=== PATIENT | female | born 1950 | race Caucasian/White ===

== ENCOUNTER 2022-06-21 11:00 | Outpatient (RCR) | payer MEDICARE, SELFPAY ==
--- NOTE | 2022-04-17 11:48 | PTOPEVAL1 ---
Assessment and note entered by Farooq Cardenas, PT, DPT Evaluation Information Assessment Status Evaluation Diagnosis L TKA Onset 03/28/22 Subjective Information Pt states he has complete 5 visits of home health therapy, it has been a week since her last visit. She states she has discomfort but is able to do almost all of her daily tasks. She states she has been taking pain medication only at night to get comfortable to sleep. She ambulates into the clinic today without a device. Reported Pain Level Pain Score 4: Self Report Assessment PT Clinical Summary Shiela presents to therapy today for her initial therapy evaluation following a L TKA on 03/28/22. Today she demonstrate L knee active motion of -10 deg to 90 deg. She currently ambulates without a device and has decreased knee flexion during swing phase of gait and decreased knee extension during the stance phase. She demonstrates decreased functional mobility at this time. Skilled physical therapy services are indicated to progress through surgical protocol, to progress towards therapy goals, to improve strength and ROM, and to promote a return to baseline of unlimited functional mobility. Plan of Care Interventions Electrical Stimulation,Gait Training,Hot Pack/Cold Pack,Manual Therapy,Neuro Re-education,Patient/ Caregiver Educati,Therapeutic Activities, Therapeutic Exercise PT Services Indicated Yes Treatment Frequency and 2x/wk for 5 wks Duration These treatments will address the objective and functional deficits as defined above. The patient will be advanced safely and appropriately in order for the patient to progress towards his/her prior level of function. Additional exercises will be introduced and as well as a comprehensive home exercise program upon discharge, if needed, ?to ensure carryover of functional gains achieved in the clinic. This treatment plan has been reviewed and agreement upon by the patient.
--- NOTE | 2022-05-24 10:59 | PTOPPROG ---
Assessment and note entered by Farooq Cardenas, PT, DPT Evaluation Information Assessment Status Progress Diagnosis L TKA Onset 03/28/22 Subjective Information Pt states she thinks she is doing extremely well. She states she has been really diligent doing her exercises at home but still struggles with the stairs. Pt reports 50% reports improvement in overall symptoms. Assessment PT Clinical Summary Shiela presents to therapy today for her progress report following 9 visits of skilled therapy to treat her L TKA performed on 03/28/22. Today she demonstrates improved active and passive ROM, actively she can get from -5 - 112 deg, and passively from -2-115 deg. She demonstrates improved gross and functional strength but it is still decreased slightly compared to her uninvolved side. She continues to have gait deviations and deviations with functional transfers that continuation of skilled therapy will work to treat. Continuation of therapy is indicated to continue progressing ROM, strength, functional mobility, and to return to baseline function. Plan of Care Interventions Electrical Stimulation,Gait Training,Hot Pack/Cold Pack,Manual Therapy,Neuro Re-education,Patient/ Caregiver Educati,Therapeutic Activities, Therapeutic Exercise PT Services Indicated Yes Treatment Frequency and 2x/wk for 4 wks Duration These treatments will address the objective and functional deficits as defined above. The patient will be advanced safely and appropriately in order for the patient to progress towards his/her prior level of function. Additional exercises will be introduced and as well as a comprehensive home exercise program upon discharge, if needed, ?to ensure carryover of functional gains achieved in the clinic. This treatment plan has been reviewed and agreement upon by the patient.
--- NOTE | 2022-06-21 11:34 | PTOPDC ---
Assessment and note entered by Farooq Cardenas, PT, DPT Evaluation Information Assessment Status Discharge Diagnosis L TKA Onset 03/28/22 Subjective Information Pt reports she is doing very well. Shes states she feels so much further ahead than on her last knee . She reports no functional limitations at this time. Reported Pain Level Pain Score 2: Self Report Assessment PT Clinical Summary Shiela presents to therapy today for her progress report following 18 visits of skilled therapy to treat the deficits following a L TKA on 03/28/22. Today she demonstrates active knee flexion from -2 deg to 110 deg. She ambulates without deviations and with a good gait speed. She has met or progressed well towards all of her therapy goals and no longer requires skilled services at this time. She will be discharged with instructions to continue her HEP. Plan of Care PT Services Indicated No
== END 2022-06-21 13:50 | disposition home or self-care (01) ==
LOC: ANHGOSHPT 11:00
PROVIDERS: PCP Internal Medicine Rheumatology
DX: Z47.1 Aftercare following joint replacement surgery (principal); Z96.652 Presence of left artificial knee joint
CPT/HCPCS: 97014; 97110; 97112; 97140; 97161; 97530; G0283